=== PATIENT | female | born 1970 | race Caucasian/White ===

== ENCOUNTER 2017-07-01 09:04 | Outpatient (CLI) | payer BC | END 2017-07-01 09:05 | disposition home or self-care (01) | LOC: BICMAMMO 09:04 | PROVIDERS: ATTEND Obstetrics & Gynecology | DX: Z12.31 Encounter for screening mammogram for malignant neoplasm of breast (principal) | CPT/HCPCS: 77063; 77067 ==

== ENCOUNTER 2020-01-22 15:32 | Outpatient (CLI) | payer BC ==
--- NOTE | 2020-01-22 15:51 | RAD ---
Exam: XR Shoulder Lt 3 View STANDARD HISTORY: Left shoulder pain COMPARISON: None FINDINGS: The coracoclavicular and acromioclavicular distances are within normal limits. No acute fracture, dislocation, or other acute osseous abnormality is identified. IMPRESSION: No acute osseous abnormality is identified.
== END 2020-01-22 15:33 | disposition home or self-care (01) ==
LOC: BICRAD 15:32
PROVIDERS: ATTEND Internal Medicine
DX: M25.512 Pain in left shoulder (principal)